=== PATIENT | male | born 1995 | race Two or more races ===

== ENCOUNTER 2017-10-19 19:02 | Emergency (ER) | payer SELFPAY ==
[~2017-10-19] VITALS: Ht 182.9 cm; Wt 79.4 kg
[2017-10-19 19:05] VITALS: BP 138/86
--- NOTE | 2017-10-19 19:20 | NUR ---
[facility] AND PT'S GIRLFRIEND AT BEDSIDE.
--- NOTE | 2017-10-19 19:30 | NUR ---
IV removed. Catheter intact and site benign. Pressure and 4x4 applied to site. No bleeding noted.
--- NOTE | 2017-10-19 19:31 | NUR ---
Patient discharged to girlfriend for transport home in stable condition. Written and verbal after care instructions given. Patient verbalizes understanding of instruction. Pt ambulatory with a steady gait. VSS, NAD noted on DC. Denies complaint on DC.
== END 2017-10-19 19:32 | disposition home or self-care (01) ==
LOC: ER 19:04
DX: T40.1X1A Poisoning by heroin, accidental (unintentional), initial encounter (principal); Y92.89 Other specified places as the place of occurrence of the external cause
CPT/HCPCS: A4606; Z7610